=== PATIENT | female | born 1990 | race Caucasian/White ===

== ENCOUNTER 2017-09-23 16:43 | Outpatient (CLI) | payer OTHER ==
[~2017-09-23] VITALS: Ht 167.6 cm; Wt 119.8 kg
[~2017-09-23 16:43] MED LIST: MTR600X PO; OXYC5TAB PO; PRENTAB26 PO
[2017-09-23] MEDS ORDERED: LACTATED RINGER'S 1000ML 1,000 ML IV ONE (17:30)
[2017-09-23] MEDS ORDERED: ONDANSETRON 4 MG TAB PO PRN (17:30)
[2017-09-23] MEDS ORDERED: ACETAMINOPHEN 325 MG TAB PO PRN (17:30)
[2017-09-23] MEDS ORDERED: SERT50TA PO (17:59)
[2017-09-23 18:00] VITALS: Ht 167.6 cm; Wt 119.8 kg
[2017-09-23] MEDS ORDERED: LACTATED RINGER'S 1000ML 1,000 ML IV SCH (19:00)
[2017-09-23] MEDS ORDERED: KFL500 PO (19:23)
[2017-09-23] MEDS ORDERED: CEPHALEXIN MONOHYDRATE 500 MG CAP PO STA (19:49)
== END 2017-09-23 19:58 | disposition home or self-care (01) ==
LOC: C.LD 16:43 → C.OPB 16:43
PROVIDERS: ATTEND Obstetrics & Gynecology
DX: O99.89 Other specified diseases and conditions complicating pregnancy, childbirth and the puerperium (principal); R10.12 Left upper quadrant pain; O99.213 Obesity complicating pregnancy, third trimester; Z3A.30 30 weeks gestation of pregnancy

== ENCOUNTER 2017-11-23 05:34 | Inpatient (IN) | payer OTHER ==
[2017-11-15 14:55] VITALS: BMI 45.0
--- NOTE | 2017-11-15 15:10 | PAT Medication Instructions ---
Service Date Nov 15, 2017. Current Home Medication List Multivit/Min/Iron/Fol Ac/Pren ( Vitamin), 1 TAB PO QPM Sertraline (Zoloft), 50 MG PO QPM Medication Instructions For Your Scheduled Surgery - Take the following medications as scheduled the night before surgery: Multivit/Min/Iron/Fol Ac/Pren ( Vitamin), 1 TAB PO QPM Sertraline (Zoloft), 50 MG PO QPM If you have any questions please call us at [phone] or [phone] or [phone]
[2017-11-15 15:50] LABS: BASO % 0.2 %; BASO ABS # 0.02 K/uL (0-0.2); EOS % 1.4 %; EOS ABS # 0.14 K/uL (0-0.5); HEMATOCRIT 35.7 % (37-47); HEMOGLOBIN 12.3 g/dL (12.0-16.0); IG# 0.07 K/uL (0.00-0.02); LYMPH % 21.8 %; LYMPH ABS # 2.25 K/uL (1.2-3.4); MEAN CELL VOLUME 90.6 fL (80-100); MEAN CORPUSCULAR HEMOGLOBIN 31.2 pg (25-34); MEAN CORPUSCULAR HGB CONC 34.5 g/dl (32-36); MEAN PLATELET VOLUME 9.2 fL (7.4-10.4); MONO % 4.8 %; NEUT % 71.1 %; NEUT ABS # 7.35 K/uL (1.4-6.5); PLATELET COUNT 166 K/uL (130-400); WHITE BLOOD COUNT 10.33 K/uL (4.8-10.8)
[2017-11-23] VITALS (15 sets, daily range): BP systolic 107–119; BP diastolic 68–82; PULSE 54–78; TEMP 36.5–36.6; O2SAT 94–99; Ht 167.6 cm; Wt 127.3 kg
[~2017-11-23] VITALS: Ht 167.6 cm; Wt 127.3 kg
[~2017-11-23 05:34] MED LIST changes: -MTR600X PO; -OXYC5TAB PO; +SERT50TA PO
[2017-11-23] MEDS ORDERED: LACTATED RINGER'S 1000ML 1,000 ML IV SCH ×4 (05:37→16:00)
[2017-11-23] MEDS ORDERED: CITRIC ACID/SODIUM CITRATE 15 ML UDC PO SCH (06:00)
[2017-11-23] MEDS ORDERED: CEFAZOLIN IV 3,000 MG in SYRINGE 0 ML IV SCH (06:00)
[2017-11-23 06:09] LABS: BASO % 0.1 %; BASO ABS # 0.01 K/uL (0-0.2); EOS % 2.2 %; EOS ABS # 0.22 K/uL (0-0.5); IG# 0.05 K/uL (0.00-0.02); LYMPH % 25.5 %; LYMPH ABS # 2.61 K/uL (1.2-3.4); MEAN CELL VOLUME 89.7 fL (80-100); MEAN CORPUSCULAR HEMOGLOBIN 30.8 pg (25-34); MEAN CORPUSCULAR HGB CONC 34.3 g/dl (32-36); MEAN PLATELET VOLUME 9.5 fL (7.4-10.4); MONO % 6.2 %; MONO ABS # 0.63 K/uL (0.11-0.59); NEUT % 65.5 %; PLATELET COUNT 155 K/uL (130-400); RED CELL DISTRIBUTION WIDTH CV 14.2 % (11.5-14.5); RED CELL DISTRIBUTION WIDTH SD 45.9 fL (36.4-46.3); WHITE BLOOD COUNT 10.22 K/uL (4.8-10.8)
--- NOTE | 2017-11-23 07:14 | History & Physical Bridge Note ---
H&P Re-Evaluation Bridge Note: I have examined the patient, reviewed the History & Physical and in the interval since the performance of the History & Physical I have noted the following changes of clinical significance: No changes noted
[2017-11-23] MEDS ORDERED: MoRPHine SULFATE PF 1 MG/ML 10 ML AMP/VIAL ONE (07:20)
[2017-11-23] MEDS ORDERED: FENTANYL CITRATE INJ 50 MCG/1 ML 2 ML VIAL ONE (07:20)
[2017-11-23] MEDS ORDERED: OXYTOCIN INJ 10 UNITS/ML VIAL ONE (07:54)
[2017-11-23] MEDS ORDERED: PHENYLEPHRINE 100MCG/ML 5ML SYR ONE (07:54)
[2017-11-23] MEDS ORDERED: ONDANSETRON INJ 2 MG/ML 2 ML VIAL ONE (08:04)
[2017-11-23] MEDS ORDERED: KETOROLAC TROMETHAMINE 30 MG/ML VIAL ONE (08:04)
--- NOTE | 2017-11-23 08:48 | [facility] Post Operative Brief Note ---
Immediate Operative Summary Operative Date Nov 23, 2017. Pre-Operative Diagnosis Low transverse caesarean section History of caesarean section Declines trial of labor/vaginal after caesarean Post-Operative Diagnosis same Procedure(s) Performed Repeat low transverse caesarean delivery for live female at [address] Jorge Montez [employer] Assistant Surgeon(s) Dr Sarthak Chery Estimated Blood Loss 500 CC Findings Consistent with Post-Op Diagnosis Fluids (cc crystalloids) 1600 ml Specimens placenta cord blood Drains warren 100 ml Anesthesia Type Spinal Complication(s) none Disposition Disposition: L&D
[2017-11-23] MEDS ORDERED: OXYTOCIN INJ 20 UNITS in LACTATED RINGER'S 1000ML 1,000 ML IV SCH (09:04)
[2017-11-23] MEDS ORDERED: NALOXONE HCL INJ 0.08 MG in SYRINGE 1.8 ML IV PRN (09:06)
[2017-11-23] MEDS ORDERED: LACTATED RINGER'S 1000ML 500 ML IV PRN (09:06)
[2017-11-23] MEDS ORDERED: SODIUM CHLORIDE 0.9% 1000ML 1,000 ML IV PRN (09:06)
[2017-11-23] MEDS ORDERED: NALOXONE HCL INJ 1 MG in SODIUM CHLORIDE 0.9% 1000ML 1,000 ML IV PRN (09:06)
[2017-11-23] MEDS ORDERED: NALBUPHINE HCL INJ 10 MG/ML AMP IV PRN (09:15)
[2017-11-23] MEDS ORDERED: DIPHTHERIA/TETANUS/PERTUSSIS 0.5 ML SYR/VIAL IM. ONE (09:15)
[2017-11-23] MEDS ORDERED: DiphenhydrAMINE HCL 50 MG/ML VIAL IV PRN ×2 (09:15)
[2017-11-23] MEDS ORDERED: SENNA 8.6 MG TAB PO PRN (09:15)
[2017-11-23] MEDS ORDERED: MoRPHine SULFATE 2 MG/ML CARP IV PRN (09:15)
[2017-11-23] MEDS ORDERED: NALOXONE HCL 0.4 MG/1 ML VIAL/CARP IV PRN (09:15)
[2017-11-23] MEDS ORDERED: MEASLES, MUMPS & RUBELLA VIRUS VIAL SQ. ONE (09:15)
[2017-11-23] MEDS ORDERED: PROMETHAZINE HCL INJ 6.25 MG in SODIUM CHLORIDE 0.9% 50ML 50 ML IV PRN (09:15)
[2017-11-23] MEDS ORDERED: MoRPHine SULFATE PF 1 MG/ML 10 ML AMP/VIAL EPI PRN (09:15)
[2017-11-23] MEDS ORDERED: ONDANSETRON INJ 2 MG/ML 2 ML VIAL IV PRN (09:15)
[2017-11-23] MEDS ORDERED: LANOLIN OINT EXT PRN (09:15)
[2017-11-23] MEDS ORDERED: EpHEDrine SULFATE INJ 50 MG/ML AMP IV PRN (09:15)
[2017-11-23] MEDS ORDERED: BENZOCAINE 20% AER SPR 82.5 GM CAN EXT PRN (09:15)
[2017-11-23] MEDS ORDERED: MEPERIDINE HCL 25 MG/ML CARP IV PRN (09:15)
[2017-11-23] MEDS ORDERED: MAGNESIUM HYDROXIDE SUSP 30 ML UDC PO PRN (09:15)
[2017-11-23] MEDS ORDERED: SUPERCREAM 0.870 % 15GM JAR EXT PRN (09:15)
[2017-11-23] MEDS ORDERED: HYDROCORTISONE ACETATE 25 MG SUPP PR PRN (09:15)
[2017-11-23] MEDS ORDERED: NO NARCOTICS OR SEDATIVES SCH (09:15)
[2017-11-23] MEDS ORDERED: D5W AND LACTATED RINGERS 1,000 ML IV SCH (10:00)
[2017-11-23] MEDS: OXYTOCIN INJ 20 UNITS in D5W AND LACTATED RINGERS 1,000 ML IV SCH ×2 (10:59→20:09)
--- NOTE | 2017-11-23 11:37 | Anesthesiology Progress Note ---
Anesthesia Post Op Note Date & Time Nov 23, 2017 at 11:37 Notes Mental Status: alert / awake / arousable, participated in evaluation Pt Amnestic to Procedure: Yes Nausea / Vomiting: adequately controlled Pain: adequately controlled Airway Patency, RR, SpO2: stable & adequate BP & HR: stable & adequate Hydration State: stable & adequate Anesthetic Complications: no major complications apparent
[2017-11-23] MEDS: SIMETHICONE 80 MG CHEW PO SCH ×3 (12:11→20:09)
--- NOTE | 2017-11-23 12:45 | OPERATIVE REPORT ---
DATE OF OPERATION: 11/23/2017 PREOPERATIVE DIAGNOSES: The patient is a 27-year-old G2, P1-0-0-1 at 39 weeks and 4 days of gestation, admitted for a scheduled repeat low transverse , history of prior and declined TOLAC (trial of labor after ). POSTOPERATIVE DIAGNOSES: The patient is a 27-year-old G2, P1-0-0-1 at 39 weeks and 4 days of gestation, admitted for a scheduled repeat low transverse , history of prior and declines TOLAC trial of labor after . PROCEDURE: Repeat low transverse with Pfannenstiel skin incision and delivery of a viable female infant at 8:06 a.m. SURGEON: Jorge Montez MD FOREIGN LANGUAGE INTERPRETER: Dr. Oden ESTIMATED BLOOD LOSS: 500 mL. FLUIDS: 1600 mL of lactated ringer. DRAINS: Silva drained 100 mL of urine. ANESTHESIA: Spinal, Dr. Bowen. COMPLICATIONS: None. SPECIMENS: Placenta and cord blood. FINDINGS: Baby was a viable female delivered at 8:06 a.m. Apgars 7/9. Weight was 3270 g which was 7 pounds 3 ounces. Baby was in cephalic presentation with a nuchal cord around the neck x1. Maternal findings, normal uterus, fallopian tubes, and ovaries. There was a scarring between the fascia and the abdominal wall. DESCRIPTION OF PROCEDURE: The patient was taken to the operating room where spinal anesthesia was given without difficulty. She was placed in dorsal supine position with a leftward tilt. She was prepared and draped in usual sterile fashion. A Pfannenstiel skin incision was made and carried through to the underlying layer of fascia with a Bovie. The fascia was incised in the midline and the incision was extended laterally with the help of Wang scissors. The upper aspect of the fascial incision was then grasped with 2 Stella clamps, elevated, the underlying rectus muscles were dissected sharply with Wang scissors. There was a scarring between the abdominal wall and the fascia and the muscles. Some of those were reduced with the tip of Bovie and some with the Wang scissors and then the lower aspect of the fascial incision was grasped with 2 Stella clamps, elevated, the underlying rectus muscles were dissected off sharply with Wang scissors. Then the rectus muscles were elevated with the [place] clamps and the scarring in between was reduced partially with Wang scissors and then the fingers were put under the scarring and the fascia and the rest of the scarring was reduced with the tip of Bovie and Wang scissors. Then parietal peritoneum incision was extended superiorly and inferiorly with good visualization of the bladder and a bladder blade was inserted. The vesicouterine peritoneum was identified, grasped with pickups, entered sharply with Metzenbaum scissors, and a bladder flap was created digitally and the bladder blade was reinserted. The lower uterine segment was incised in transverse fashion. The incision was extended laterally with the help of fingers. The membranes were ruptured. Light meconium-stained fluid was obtained. The baby's head was delivered without difficulty. Nuchal cord was reduced. Shoulders were delivered with minimal traction. Mouth and nose were suctioned. Cord was clamped x2 and cut and the baby was handed to the waiting aged or disabled care worker, Dr. Beltrán. Cord blood was obtained and placenta was delivered manually as intact and complete. The uterus was exteriorized, cleared of all clots and the rest of uterine incision was repaired with 0 Vicryl in a running locked fashion and a second imbricating layer was placed with again 0 Vicryl in a running locked fashion. Excellent hemostasis was achieved. The incision was inspected to be hemostatic. Then the cul-de-sac was irrigated with warm normal saline and suctioned. The uterus was returned to the abdomen. The pelvis was irrigated with warm normal saline and suctioned. The incision was inspected to be hemostatic. Then parietal peritoneum was reapproximated with 3-0 Vicryl in a running fashion and the rectus muscles were reapproximated with the same suture in a running fashion and the rectus fascia was reapproximated with 0 Vicryl in a running fashion. Subcuticular fat tissue was reapproximated with 3-0 Vicryl in a running fashion and the skin was closed with 4-0 Monocryl in a subcuticular fashion and the skin was covered with Steri-Strips and sterile dressings. The patient tolerated the procedure well. Sponge, lap, and needle count was correct x3. No complications happened and I was present during the whole procedure. She was given 3 g of cefazolin before surgery. She was taken to labor and delivery in a stable condition. I attest to the content of the Intraoperative Record and any orders documented therein. Any exceptions are noted below. MTDD
[2017-11-23] MEDS: KETOROLAC TROMETHAMINE 30 MG/ML VIAL IV. PRN ×2 (14:25→22:50)
[2017-11-23] MEDS: DOCUSATE SODIUM 100 MG CAP PO SCH (20:09)
[2017-11-24] VITALS (7 sets, daily range): BP systolic 98–128; BP diastolic 64–82; PULSE 69–76; TEMP 36.6–36.8; O2SAT 96–98
[2017-11-24] MEDS ORDERED: DiphenhydrAMINE HCL 50 MG/ML VIAL IV PRN (02:00)
[2017-11-24] MEDS ORDERED: PROMETHAZINE HCL INJ 25 MG in SODIUM CHLORIDE 0.9% 50ML 50 ML IV PRN (02:00)
[2017-11-24] MEDS ORDERED: MEPERIDINE HCL 50 MG/ML CARP IV PRN ×2 (02:00)
[2017-11-24] MEDS ORDERED: ONDANSETRON INJ 2 MG/ML 2 ML VIAL IV PRN (02:00)
[2017-11-24] MEDS ORDERED: KETOROLAC TROMETHAMINE 30 MG/ML VIAL IV. PRN (02:00)
[2017-11-24] MEDS ORDERED: OXYCODONE/ACETAMINOPHEN 5-325 TAB PO PRN (02:00)
[2017-11-24] MEDS ORDERED: DC INTRASPINAL MORPHINE SCH (02:00)
[2017-11-24] MEDS: OXYCODONE/ACETAMINOPHEN 5-325 TAB PO PRN ×4 (02:55→22:28)
[2017-11-24] MEDS: IBUPROFEN 600 MG TAB PO PRN ×5 (06:00→22:28)
[2017-11-24 07:19] LABS: HEMATOCRIT 29.4 % (37-47); HEMOGLOBIN 10.1 g/dL (12.0-16.0); MEAN CELL VOLUME 90.5 fL (80-100); MEAN CORPUSCULAR HEMOGLOBIN 31.1 pg (25-34); MEAN CORPUSCULAR HGB CONC 34.4 g/dl (32-36); RED CELL DISTRIBUTION WIDTH CV 14.1 % (11.5-14.5); WHITE BLOOD COUNT 13.55 K/uL (4.8-10.8)
[2017-11-24] MEDS: SIMETHICONE 80 MG CHEW PO SCH ×4 (07:50→20:29)
[2017-11-24 08:08] LABS: BASO % 0.1 %; BASO ABS # 0.02 K/uL (0-0.2); EOS % 1.8 %; EOS ABS # 0.24 K/uL (0-0.5); IG# 0.06 K/uL (0.00-0.02); LYMPH % 14.7 %; LYMPH ABS # 1.99 K/uL (1.2-3.4); MEAN PLATELET VOLUME 8.4 fL (7.4-10.4); MONO % 5.8 %; MONO ABS # 0.78 K/uL (0.11-0.59); NEUT % 77.2 %; NEUT ABS # 10.46 K/uL (1.4-6.5); PLATELET COUNT 98 K/uL (130-400)
[2017-11-24] MEDS: PRENATAL VITAMIN TAB PO SCH (09:21)
[2017-11-24] MEDS: DOCUSATE SODIUM 100 MG CAP PO SCH ×2 (09:21→20:29)
[2017-11-24] MEDS: FERROUS SULFATE 325 MG TAB PO SCH (09:21)
--- NOTE | 2017-11-24 09:58 | Surgery Progress Note ---
Surgery Progress Note Date of Service Nov 24, 2017. Subjective Post OP Day: 1 + feeling well, + ambulating, + flatus, + pain controlled, + diet Objective Vital Signs: Date Time Temp Pulse Resp B/P (MAP) Pulse Ox O2 Delivery O2 Flow Rate FiO2 11/24/17 08:00 36.6 76 20 125/79 (94) 11/24/17 03:00 36.8 69 16 128/82 (97) 97 Room Air 11/24/17 02:15 16 96 11/24/17 01:19 18 98 11/24/17 00:20 18 97 11/23/17 23:20 Room Air 11/23/17 23:20 36.5 68 18 108/70 (83) 96 Room Air 11/23/17 23:20 18 96 11/23/17 22:15 16 98 11/23/17 21:00 20 97 11/23/17 20:20 36.6 54 18 119/82 (94) 97 Room Air 11/23/17 20:00 20 98 11/23/17 19:00 18 98 11/23/17 18:00 18 97 11/23/17 17:15 16 99 11/23/17 16:30 95 Room Air 11/23/17 16:00 18 95 11/23/17 16:00 36.6 78 18 107/70 (82) 95 Room Air 11/23/17 14:20 18 96 11/23/17 13:30 36.5 66 20 109/68 (82) 94 Room Air 11/23/17 13:20 16 94 11/23/17 12:30 36.6 59 18 112/71 (85) 96 Room Air 11/23/17 12:20 16 96 Abdomen: non tender, non distended, soft Incision(s): clean, dry, intact Extremities: non-tender, normal inspection, no pedal edema, no calf tenderness Laboratory Results: Results Past 24 Hours Test 11/24/17 07:06 Range/Units White Blood Count 13.55 4.8-10.8 K/uL Red Blood Count 3.25 4.2-5.4 M/uL Hemoglobin 10.1 12.0-16.0 g/dL Hematocrit 29.4 37-47 % Mean Corpuscular Volume 90.5 80-100 fL Mean Corpuscular Hemoglobin 31.1 25-34 pg Mean Corpuscular Hemoglobin Concent 34.4 32-36 g/dl Platelet Count 98 130-400 K/uL Mean Platelet Volume 8.4 7.4-10.4 fL Neutrophils (%) (Auto) 77.2 % Lymphocytes (%) (Auto) 14.7 % Monocytes (%) (Auto) 5.8 % Eosinophils (%) (Auto) 1.8 % Basophils (%) (Auto) 0.1 % Neutrophils # (Auto) 10.46 1.4-6.5 K/uL Lymphocytes # (Auto) 1.99 1.2-3.4 K/uL Monocytes # (Auto) 0.78 0.11-0.59 K/uL Eosinophils # (Auto) 0.24 0-0.5 K/uL Basophils # (Auto) 0.02 0-0.2 K/uL RDW Standard Deviation 46.0 36.4-46.3 fL RDW Coefficient of Variation 14.1 11.5-14.5 % Immature Granulocyte % (Auto) 0.4 % Immature Granulocyte # (Auto) 0.06 0.00-0.02 K/uL Platelet Estimate DECREASED Red Blood Cell Morphology Unremarkable Assessment & Plan regular diet advance care and diet
[2017-11-24] MEDS: SERTRALINE HCL 50 MG TAB PO SCH (20:29)
[2017-11-24] MEDS ORDERED: BISACODYL 5 MG TABEC PO ONE (22:00)
[2017-11-25] MEDS: OXYCODONE/ACETAMINOPHEN 5-325 TAB PO PRN ×5 (03:12→21:44)
[2017-11-25] MEDS: IBUPROFEN 600 MG TAB PO PRN ×5 (03:12→21:44)
[2017-11-25 05:58] LABS: HEMATOCRIT 29.2 % (37-47)
[2017-11-25 07:59] VITALS: BP 112/72; PULSE 71; TEMP 36.9
[2017-11-25] MEDS ORDERED: SERTRALINE HCL 50 MG TAB PO SCH (08:00)
[2017-11-25] MEDS: PRENATAL VITAMIN TAB PO SCH (08:09)
[2017-11-25] MEDS: SIMETHICONE 80 MG CHEW PO SCH ×4 (08:09→20:12)
[2017-11-25] MEDS: FERROUS SULFATE 325 MG TAB PO SCH (08:10)
[2017-11-25] MEDS: DOCUSATE SODIUM 100 MG CAP PO SCH ×2 (08:10→20:12)
[2017-11-25 08:15] VITALS: BP 127/85; PULSE 65; TEMP 36.4; O2SAT 98
--- NOTE | 2017-11-25 09:09 | OB/GYN Progress Note ---
CO[employer] DEF[employer] OFFICER Progress Note Date of Service: Nov 25, 2017. Patient is seen and examined. She feels well, no complaints. Pain is under control with oral meds. Ambulating without dizziness Voiding without difficulty Tolerating regular diet with out N&V Flatus + BM not yet Bleeding is minimal No fever/ chills/ CP/ SOB/ N&V/ Leg pain Breast feeding without problems Date Time Temp Pulse Resp B/P (MAP) Pulse Ox O2 Delivery O2 Flow Rate FiO2 11/25/17 07:59 36.9 71 18 112/72 (85) Room Air 11/24/17 23:40 Room Air 11/24/17 16:00 98 Room Air 11/24/17 11:50 36.6 71 20 98/64 (75) Last 24 Hours Test 11/25/17 05:45 Hemoglobin 10.0 g/dL Hematocrit 29.2 % PE: General: Alert, orientedx3, NAD CVS: S1S2 RRR Lungs; CTAB Abd: soft, NT, ND, BS+, fundus firm, below Umbilicus Incision: Clean, dry, intact Perineum intact, Lochia rubra minimal Ext; NT, no edema AP: 27 yo s/p C Section, pod# 2 VSS Afebrile doing well Continue routine postop care Encourage ambulation, PO intake All questions were answered D/C home tomorrow
[2017-11-25] MEDS ORDERED: BISACODYL 10 MG SUPP PR PRN (09:15)
[2017-11-25 16:50] VITALS: BP 130/84; PULSE 83; TEMP 36.8; O2SAT 99
[2017-11-25] MEDS: SERTRALINE HCL 50 MG TAB PO SCH (20:12)
[2017-11-25 23:30] VITALS: BP 130/79; PULSE 83; TEMP 36.6
[2017-11-26] MEDS: OXYCODONE/ACETAMINOPHEN 5-325 TAB PO PRN ×3 (03:04→10:37)
[2017-11-26] MEDS: IBUPROFEN 600 MG TAB PO PRN ×3 (03:04→10:37)
[2017-11-26] MEDS ORDERED: MTR600X PO (07:30)
[2017-11-26] MEDS ORDERED: OXYC-57 PO (07:30)
--- NOTE | 2017-11-26 07:31 | Discharge Instructions ---
Discharge Instructions Date of Service Nov 26, 2017. Admission Reason for Admission: Termed , Prior Section Discharge Discharge Diagnosis / Problem: Repeat Section Discharge Goals Goal(s): Routine recovery after Activity Recommendations Activity Limitations: per Instructions/Follow-up section . Instructions / Follow-Up Instructions / Follow-Up ACTIVITY RECOMMENDATIONS: * Gradual return to full activity over the next 2-3 weeks. * No lifting - nothing heavier than baby over the next 2-3 weeks. * Do not engage in vigorous exercise, sexual activity or sports until cleared by your physician. * Do not drive or operate any motorized equipment until cleared by your physician. * You may shower/bathe daily. BREAST CARE: If you are not breast feeding: * Wear a supportive bra 24 hours a day for one to two weeks. * Avoid stimulating your breasts and nipples as much as possible during the first few weeks after delivery. * When taking a shower, have the warm water hit your back, not breasts. * When your breasts feel full, apply ice packs. Usually three to four times a day helps ease the discomfort. * Take a mild pain medication (Tylenol/Motrin) when you are uncomfortable. If breast feeding: * Use breast milk to lubricate nipples. Lansinoh cream may be used for sore nipples. You do not need to remove cream prior to breast feeding. If using a different brand of cream, check the label for directions regarding removal of cream prior to nursing. * Wear a supportive bra. * If having problems with breasts or breast feeding, call a aviation consultant or your health care provider. OVER THE COUNTER MEDICATION: * For discomfort or pain, you may use Acetaminophen (Tylenol), Ibuprofen (Advil ), or Naproxen (Aleve) following the package directions. * For constipation you may use Colace following the package directions. SPECIAL CARE INSTRUCTIONS: When you are discharged from the hospital, it is important for you to follow the instructions listed below: * During the first week at home, you should be able to care for yourself and your baby. In addition, the usual light household activities are encouraged. * Limit your activities to the way you feel. Do not try to clean the house or move furniture. Be sensible. * If you actively engage in sports and have done so up until the time of your delivery, you may resume these activities as soon as you feel able. This may take up to one month or even longer. Use good judgment. * Continue to take your vitamins for at least six weeks after the of your baby. * Your diet need not be limited unless you were on a special diet before your delivery. Breast-feeding mothers need around 2500 calories per day and at least 64-80 ounces of fluid per day (8 to 10 glasses). * You should eat foods from the four major food groups. Crash diets or fad diets are to be avoided. Eating lean meats, fresh fruits and vegetables, low-fat dairy products, high fiber foods and a regular exercise program, will help you get back to your pre- weight without putting your health at risk. * Constipation is sometimes a problem after delivery. Take a mild laxative as needed. If breast feeding, Milk of Magnesia is acceptable to use. You may use a suppository or Fleets enema if no episiotomy. * A daily shower or tub bath is suggested. Be sure to thoroughly and gently dry the perineum. * A bloody vaginal discharge will usually continue until around four weeks post . A small amount of bleeding may continue for as long as six weeks. Vaginal discharge changes from the bright red bleeding after delivery to pink then brownish and finally yellowish-pink before becoming white and disappearing. * Bleeding may increase with activity. Your first period may come in 4-8 weeks. If you are breast feeding, your period may be delayed even longer. * [place] (sex) can begin whenever both you and your partner feel comfortable and do not have any form of genital infection. It is recommended that you wait at least six weeks for internal and external healing to occur. If you have questions, please talk to your health care practitioner. A condom should be used to prevent infection and . * Foreplay, gentle intercourse and lubrication is very important the first several times to prevent pain. A water-based lubricant such as K-Y jelly or Astroglide may be used. * Tampons and/or Douching should be avoided until after six weeks check-up. * If you have RH negative blood and your baby is RH positive, you will receive RHOGAM by injection prior to discharge. The nurse will give you a card to keep with you that has the date and place that you received RHOGAM after delivery. * During your care, you had a Rubella screen done to check for the presence of rubella antibodies in your blood. If your test was negative, you will receive a Rubella vaccine prior to discharge. This vaccine may cause a fever, soreness at the injection site and flu-like symptoms. If these symptoms persist, notify your health care practitioner. is not advised for three months after a Rubella vaccine. * Verbalizes understanding of car seat law as reviewed with patient nursing. * Car Seat hand-out given and reviewed with patient by nursing. * Shaken baby information reviewed with patient by nursing. Call you doctor if: * Heavy bleeding (saturating several pads an hour) or passing clots the size of your fist. * A fever >101 degrees F (38.3 degrees C) on two occasions four hours apart and /or chills. * Unusual pain in the pelvic or vaginal areas. Pain should improve each day . * Call the doctor for any increased redness, drainage or swelling around the incision and any pain unrelieved by prescribed pain medication. * Any signs or symptoms of phlebitis (possible blood clots forming in the veins ): leg pain, warm, red or swollen area on leg. * "Baby Blues" lasting longer than two weeks. If you have any questions or concerns, call your health care practitioner at . FOLLOW-UP VISIT: * Incision check (staple removal) in 1 week. Please call doctor's office at to set up appointment. * Please call the office at to schedule a 6 week examination. It is important you keep this appointment. * It is important for you to make arrangements for either yearly or twice yearly check-ups thereafter. Current Hospital Diet Patient's current hospital diet: Regular OB Diet Discharge Diet Recommended Diet: Regular OB Diet Procedures Procedures Performed: Repeat low transverse caesarean delivery for live female infant at 0806 Pending Studies Studies pending at discharge: no Medical Emergencies . Who to Call and When: Medical Emergencies: If at any time you feel your situation is an emergency, please call [phone] immediately. . Non-Emergent Contact Non-Emergency issues call your: Primary Care Provider, [employer] . . "Provider Documentation" section prepared by Sarthak Chery. . [place] Drug Monitoring Program Search Results: patient reviewed within database, no issues identified
--- NOTE | 2017-11-26 07:33 | OB/GYN Progress Note ---
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 Subjective conversation w/ patient Ambulation: ambulating normally Voiding: no voiding problems Passing Gas: Yes Diet Tolerance: Regular Diet Lochia: Small Feeding Type: Breast Feeding Pain: 11/09 Notes: Doing well. Pain well controlled. Tolerating regular diet. Ambulating without difficulty. Lochia minimal. Would like to go home today. Objective Vital Signs Date Time Temp Pulse Resp B/P (MAP) Pulse Ox O2 Delivery O2 Flow Rate FiO2 11/25/17 23:30 Room Air 11/25/17 23:30 36.6 83 16 130/79 (96) Room Air 11/25/17 16:50 36.8 83 16 130/84 (99) 99 Room Air 11/25/17 16:50 Room Air 11/25/17 08:15 98 Room Air 11/25/17 08:15 36.4 65 16 127/85 (99) 98 Room Air 11/25/17 07:59 36.9 71 18 112/72 (85) Room Air Physical Exam General Appearance: WELL-APPEARING Respiratory/Chest: chest non-tender, lungs clear Cardiovascular: regular rate, rhythm Abdomen: normal bowel sounds, soft Incision Description: Clean, Dry & Intact Extremities: normal range of motion, non-tender, no calf tenderness Assessment and Plan Post-Op Day Number: 3 Continue Routine Care: -D/C home today -F/U in 1 week for incision check
[2017-11-26 07:45] VITALS: BP 136/86; PULSE 83; TEMP 36.5
[2017-11-26] MEDS: DOCUSATE SODIUM 100 MG CAP PO SCH (08:29)
[2017-11-26] MEDS: SIMETHICONE 80 MG CHEW PO SCH (08:29)
[2017-11-26] MEDS: PRENATAL VITAMIN TAB PO SCH (08:29)
[2017-11-26] MEDS: FERROUS SULFATE 325 MG TAB PO SCH (08:29)
[2017-11-26 11:00] VITALS: BP_DIAS 86; PULSE 83; TEMP 36.5
[2017-11-26] MEDS ORDERED: HYDROCORTISONE 1% CR 30 GM TUBE EXT PRN (14:00)
== END 2017-11-26 11:25 | disposition home or self-care (01) | DRG 765 ==
LOC: C.LD 05:34 → C.OBG 12:03 → EDSTATUS 11-30 11:03
PROVIDERS: ADMIT Obstetrics & Gynecology; ATTEND Obstetrics & Gynecology
PROC: 10D00Z1 Extraction of Products of Conception, Low, Open Approach (ICD-10-PCS; principal; 2017-11-23 07:30)
DX: O99.214 Obesity complicating childbirth (principal); Z68.42 Body mass index [BMI] 45.0-49.9, adult; E66.9 Obesity, unspecified; O69.81X0 Labor and delivery complicated by cord around neck, without compression, not applicable or unspecified; O99.344 Other mental disorders complicating childbirth; F41.9 Anxiety disorder, unspecified; Z3A.39 39 weeks gestation of pregnancy; Z37.0 Single live birth; Z79.899 Other long term (current) drug therapy; Z91.048 Other nonmedicinal substance allergy status